=== PATIENT | male | born 1985 | race African-American/Black ===

== ENCOUNTER 2018-09-23 07:04 | Emergency (ER) | payer SELFPAY ==
--- NOTE | 2018-09-23 08:21 | ER Document Report ---
ED General - General Chief Complaint: Nausea/Vomiting Stated Complaint: ABDOMINAL PAIN Time Seen by Provider: 09/23/18 08:13 TRAVEL OUTSIDE OF THE [place] IN LAST 30 DAYS: No - HPI Notes: Patient is a 83-year-old male that presents to the emergency department for chief complaint of abdominal pain. Patient reports 2 days of epigastric abdominal pain nausea and vomiting. He states currently his symptoms have completely resolved but he did not want to go to work today. He states he is here for a work note. He states his pain was epigastric and intermittent. It was sharp when it was there. He states he had no aggravating or relieving factors to his pain when it was occurring. He does drink a lot of caffeine daily and believes that may have been contributing. He denies any spicy food or fried foods in his diet. Past Medical History: Negative Past Surgical History: Negative Social History: Denies drugs alcohol and tobacco Family History: Reviewed and noncontributory for presenting illness Allergies: Reviewed, see documented allergy list. REVIEW OF SYSTEMS: CONSTITUTIONAL : No fever No chills No diaphoresis No recent illness EENT: No vision changes No congestion No sore throat CARDIOVASCULAR: No chest pain No palpitations RESPIRATORY: No shortness of breath No cough No difficulty breathing GASTROINTESTINAL: abdominal pain nausea vomiting No diarrhea GENITOURINARY: No dysuria No hematuria No difficulty urinating MUSCULOSKELETAL: No back pain No leg pain No arm pain SKIN: No rashes No lesions LYMPHATIC: No swollen, enlarged glands. NEUROLOGICAL: No lightheadedness No headache No weakness No paresthesias PSYCHIATRIC: No anxiety No depression PHYSICAL EXAMINATION: Vital signs reviewed, nursing noted reviewed. GENERAL: Well-appearing, well-nourished and in no acute distress. HEAD: Atraumatic, normocephalic. EYES: Eyes appear normal, extraocular movements intact, sclera anicteric, conjunctiva are normal. ENT: nares patent, oropharynx clear without exudates. Moist mucous membranes. NECK: Normal range of motion, supple without lymphadenopathy LUNGS: Breath sounds clear to auscultation bilaterally and equal. No wheezes rales or rhonchi. HEART: Regular rate and rhythm without murmurs ABDOMEN: Soft, nontender, normoactive bowel sounds. No rebound, guarding, or rigidity. No masses appreciated. EXTREMITIES: Nontender, good range of motion, no pitting or edema. NEUROLOGICAL: No focal neurological deficits. Moves all extremities spontaneously Motor and sensory grossly intact on exam. PSYCH: Normal mood, normal affect. SKIN: Warm, Dry, normal turgor, no rashes or lesions noted on exposed skin - Related Data Allergies/Adverse Reactions: No Known Allergies Allergy (Verified 09/23/18 07:05) Past Medical History - Social History Smoking Status: Never Smoker Family History: Reviewed & Not Pertinent Patient has suicidal ideation: No Patient has homicidal ideation: No Renal/ Medical History: Denies: Hx Peritoneal Dialysis Review of Systems - Review of Systems Notes: Dictated Physical Exam - Vital signs Vitals: Temp Pulse Resp BP Pulse Ox 97.4 F 57 L 14 126/74 H 97 09/23/18 07:07 09/23/18 07:07 09/23/18 07:07 09/23/18 07:07 09/23/18 07:07 - Notes Notes: Dictated Course - Re-evaluation Re-evalutation: 09/23/18 08:21 Vitals reviewed. Nursing notes reviewed. Patient currently asymptomatic. He states he is here for a work note which will be provided for today. He was encouraged to return to work tomorrow. He will be referred to primary care for establishment of a PCP. He will return for any new or worsening symptoms as needed. Discharged in stable condition. - Vital Signs Vital signs: Temp Pulse Resp BP Pulse Ox 97.4 F 57 L 14 126/74 H 97 09/23/18 07:07 09/23/18 07:07 09/23/18 07:07 09/23/18 07:07 09/23/18 07:07 Discharge - Discharge Clinical Impression: Abdominal pain Qualifiers: Abdominal location: upper abdomen, unspecified Qualified Code(s): R10.10 - Upper abdominal pain, unspecified Condition: Stable Disposition: HOME, SELF-CARE Instructions: Abdominal Pain ([facility]), Family Physicians / Practices Additional Instructions: Please return to the emergency department if you have any worsening, or concern of your symptoms. Please return to the emergency department if you develop chest pain, difficulty breathing, severe abdominal pain, or ongoing vomiting. Please follow-up with your primary care physician in 2-3 days and any other recommended physicians. If prescribed, take all medications as directed. If you have any questions or concerns do not hesitate to return the emergency department for evaluation. [] Forms: Parent Work Note, Return to Work
[2018-09-23 08:36] VITALS: BP 115/71
== END 2018-09-23 08:23 | disposition home or self-care (01) ==
LOC: ER 07:04
DX: R10.13 Epigastric pain (principal); R11.2 Nausea with vomiting, unspecified
CPT/HCPCS: 99281